=== PATIENT | male | born 1950 | race Two or more races ===

== ENCOUNTER 2018-10-30 17:33 | Emergency (ER) | payer MEDICARE, MEDICAID ==
[~2018-10-30] VITALS: Ht 177.8 cm; Wt 107.5 kg
[2018-10-30 17:48] VITALS: BP 134/88
== END 2018-10-30 22:23 | disposition home or self-care (01) ==
LOC: ER 17:33
DX: S01.402D Unspecified open wound of left cheek and temporomandibular area, subsequent encounter (principal); X58.XXXD Exposure to other specified factors, subsequent encounter